=== PATIENT | female | born 1955 | race Caucasian/White ===

== ENCOUNTER 2025-10-04 18:41 | Emergency (ER) | payer MEDICARE ==
[~2025-10-04] VITALS: Ht 152.4 cm; Wt 68.0 kg
[2025-10-04 18:44] VITALS: O2SAT 98
[2025-10-04] MEDS: MORPHINE SULFATE 4 MG/ML INJ (FOR IV/IM USE) IM ONE (19:56)
[2025-10-04 20:11] LABS: BASOPHILS % 0.3 % (0.0-2.0); EOSINOPHILS % 0.3 % (0.0-5.0); HEMATOCRIT. 39.2 % (36.0-48.0); HEMOGLOBIN. 12.8 g/dL (12.0-16.0); LYMPHOCYTES % 14.9 % (20.0-50.0); MEAN PLATELET VOLUME 10.5 fl (7.4-10.4); MONOCYTES % 4.9 % (2.0-8.0); NEUTROPHILS % 79.6 % (40.0-76.0); PLATELET 199 x1000/uL (130-400); RED BLOOD CELL COUNT 4.60 mill/uL (4.2-5.4); RED CELL DISTRIBUTION WIDTH 15.5 % (11.6-14.6)
[2025-10-04 20:17] LABS: CREATININE 0.7 mg/dL (0.6-1.0); UREA NITROGEN BLOOD 8 mg/dL (9-23)
[2025-10-04 20:22] LABS: INR 1.0
[2025-10-04] MEDS: MORPHINE SULFATE 4 MG/ML INJ (FOR IV/IM USE) IV ONE (21:57)
[2025-10-05 01:24] VITALS: BP 130/74; PULSE 74; RESP 16; TEMP 36.7; O2SAT 98
== END 2025-10-05 01:48 | disposition home or self-care (01) ==
LOC: ER 18:41 → CMPBEDREQ 10-06 08:26
DX: S82.142A Displaced bicondylar fracture of left tibia, initial encounter for closed fracture (principal); I10 Essential (primary) hypertension; E11.9 Type 2 diabetes mellitus without complications; Z88.8 Allergy status to other drugs, medicaments and biological substances; X58.XXXA Exposure to other specified factors, initial encounter; Y93.89 Activity, other specified; Y92.89 Other specified places as the place of occurrence of the external cause; Y99.8 Other external cause status
CPT/HCPCS: 99285; 96374; 29505; 71045; 80048; 85025; 85610; 85730; 36415; 73562; 73590; 73610; 73620; 93005; 96372; J2270; A6449